=== PATIENT | female | born 1940 | race Caucasian/White ===

== ENCOUNTER 2022-06-09 11:44 | Emergency (ER) | payer OTHER ==
[~2022-06-09] VITALS: Ht 157.5 cm; Wt 81.6 kg
[2022-06-09 11:50] VITALS: BP_SYST 128
--- NOTE | 2022-06-09 11:51 | NUR ---
Placed in room 01 . Placed on personnel monitor, blood pressure machine and pulse oximeter. To gown for exam. Side rails up. Report given to Andreia BONNER.
--- NOTE | 2022-06-09 12:01 | NUR ---
81 YR OLD AOX2 WITH CONFUSION FEMALE BROUGHT IN BY PARAMEDICS WITH COMPLAINT OF "FACIAL TWITCHING" PER THE . REPORTS BEING CONCERNED BECAUSE PT HAS NEVER DONE THIS BEFORE. PT HAS HX OF HTN, DEMENTIA, AND HIGH CHOLESTEROL. PT ARRIVED WITH A 20 G IV PLACED IN THE LEFT FOREARM BY PARAMEDICS. PT IS AMBULATORY, AT THE BEDSIDE
--- NOTE | 2022-06-09 12:30 | NUR ---
HOLLIS Mcgovern at bedside examining patient.
[2022-06-09 13:20] LABS: BASOPHILS % (AUTO) 0.7 % (0.0-2.0); EOSINOPHILS # (AUTO) 0.1 K/uL (0.0-0.4); EOSINOPHILS % (AUTO) 1.6 % (0.0-4.0); HEMATOCRIT 34.7 % (36-48); LYMPHOCYTES # (AUTO) 1.3 K/uL (1.0-5.5); LYMPHOCYTES % (AUTO) 19.3 % (20.5-51.5); MEAN CORPUSCULAR VOLUME 89 fL (79.0-98.0); MONOCYTES # (AUTO) 0.9 K/uL (0.0-1.0); MONOCYTES % (AUTO) 13.2 % (1.7-9.3); NEUTROPHILS # (AUTO) 4.4 K/uL (1.8-7.7); NEUTROPHILS % (AUTO) 65.2 % (40.0-70.0); PLATELET COUNT (AUTO) 239 K/uL (130-430); WHITE BLOOD COUNT (AUTO) 6.7 K/uL (4.8-10.8)
[2022-06-09 13:37] LABS: PROTHROMBIN TIME 10.1 SECS (9.5-12.5)
[2022-06-09 14:33] LABS: ANION GAP 8 (5-15); CALCIUM 9.1 mg/dL (8.4-11.0); CHLORIDE 99 mmol/L (98-107); CREATININE 1.35 mg/dL (0.55-1.30); GLUCOSE 109 mg/dL (70-99); POTASSIUM 3.9 mmol/L (3.5-5.1); UREA NITROGEN, BLOOD 18 mg/dL (8-21)
[2022-06-09 14:46] LABS: ALANINE AMINOTRANSFERASE 24 U/L (12-78); ALBUMIN 2.8 g/dL (3.4-4.8); ASPARTATE AMINOTRANSFERASE 20 U/L (10-37); TOTAL BILIRUBIN 0.3 mg/dL (0.0-1.0)
[2022-06-09 14:48] LABS: ACETAMINOPHEN < 1 ug/mL (1-30); ALCOHOL, BLOOD < 3 mg/dL (<10)
--- NOTE | 2022-06-09 15:06 | NUR ---
Covid swab done and sent to lab.
[2022-06-09] MEDS ORDERED: levETIRAcetam 1,000 MG IV BAG 100 ML IV ONE (16:30)
--- NOTE | 2022-06-09 19:10 | NUR ---
Called [facility] for admission for seizure.
[2022-06-09] MEDS ORDERED: DONE10TA44 PO (19:37)
[2022-06-09] MEDS ORDERED: LISI20TA30 PO (19:37)
[2022-06-09] MEDS ORDERED: LIP20 PO (19:37)
--- NOTE | 2022-06-09 19:45 | NUR ---
Report received from HA Castillo; assuming care of patient at this time.
--- NOTE | 2022-06-09 20:30 | NUR ---
Patient sitting comfortably in chair with by her side. Nad noted at this time.
[2022-06-09] MEDS ORDERED: LEVE250T2 PO (20:39)
[2022-06-09 21:11] VITALS: BP_SYST 128
--- NOTE | 2022-06-09 21:11 | NUR ---
Patient given written and verbal discharge instructions and verbalizes understanding. ER MD discussed with patient the results and treatment provided. Patient in stable condition. ID arm band removed. IV catheter removed intact and dressing applied, no active bleeding. Rx of Keppra given. Patient educated on pain management and to follow up with PMD. Pain Scale 0/10. Opportunity for questions provided and answered. Medication side effect fact sheet provided. Patient in stable condition upon discharge accompanied by .
== END 2022-06-09 21:34 | disposition home or self-care (01) ==
LOC: SED 11:44
DX: R56.9 Unspecified convulsions (principal); N17.9 Acute kidney failure, unspecified; I10 Essential (primary) hypertension; Z79.899 Other long term (current) drug therapy; Z20.822 Contact with and (suspected) exposure to COVID-19
CPT/HCPCS: 99291; 96365; 70450; 87426; 80053; 85025; 85610; 85730; 87040; 84484; 36415; 93005; 71045; 76376; 83605; G0482; J1953; G0480; G0481